=== PATIENT | female | born 1975 | race Caucasian/White ===

== ENCOUNTER 2021-01-09 09:35 | Observation (INO) | payer OTHER ==
[2021-01-09] MEDS ORDERED: LACTATED RINGERS SOLUTION 1,000 ML/1,000 ML INFUS.BAG IV STA (09:47)
[2021-01-09] MEDS ORDERED: ACETAMINOPHEN 1000 MG/100 ML VIAL (NON FORMULARY) IVPB ONE ×2 (09:47→15:36)
[2021-01-09] MEDS ORDERED: ACETAMINOPHEN INJECTION 100 ML IVPB ONE ×2 (09:59→15:31)
[2021-01-09 10:17] LABS: BASO % 0.3 % (0-2.0); EOS % 0.3 % (0-4.5); HEMATOCRIT 26.8 % (32.4-45.2); HEMOGLOBIN 8.5 GM/dl (10.7-15.3); LYMPH % 12.2 % (8-40); MCH 20.5 pg (25.7-33.7); MCHC 31.7 g/dl (32.0-36.0); MEAN CELL VOLUME 64.7 fl (80-96); MEAN PLT VOLUME 8.4 fl (7.5-11.1); MONO % 3.8 % (3.8-10.2); NEUT % 83.4 % (42.8-82.8); PLATELET COUNT 298 K/MM3 (134-434); RBC 4.14 M/mm3 (3.60-5.2); RDW 17.5 % (11.6-15.6); WHITE BLOOD COUNT 7.2 K/mm3 (4.0-10.8)
[2021-01-09 10:18] LABS: ADD RBC MORPHOLOGY YES
[2021-01-09 10:24] LABS: ALBUMIN 3.6 g/dl (3.4-5.0); BILIRUBIN,TOTAL 0.6 mg/dl (0.2-1); CALCIUM 8.2 mg/dl (8.5-10); CREATININE 0.5 mg/dl (0.55-1.3); MAGNESIUM 1.7 mg/dL (1.8-2.4); TOT PROT 6.9 g/dl (6.4-8.2)
[2021-01-09 11:09] LABS: ANISOCYTOSIS 1+
[2021-01-09 11:10] LABS: PLATELET ESTIMATE ADEQUATE
[2021-01-09 11:39] LABS: HEMATOCRIT 26.4 % (32.4-45.2); HEMOGLOBIN 8.4 GM/dl (10.7-15.3); MCH 20.5 pg (25.7-33.7); MCHC 31.7 g/dl (32.0-36.0); MEAN CELL VOLUME 64.8 fl (80-96); MEAN PLT VOLUME 8.9 fl (7.5-11.1); PLATELET COUNT 232 K/MM3 (134-434); RBC 4.08 M/mm3 (3.60-5.2); RDW 17.7 % (11.6-15.6); WHITE BLOOD COUNT 7.6 K/mm3 (4.0-10.8)
[2021-01-09 11:52] LABS: BASO % 0.4 % (0-2.0); EOS % 0.1 % (0-4.5); LYMPH % 11.9 % (8-40); MONO % 3.4 % (3.8-10.2); NEUT % 84.2 % (42.8-82.8)
[2021-01-09 16:07] VITALS: BMI 35.3
[2021-01-09] MEDS ORDERED: MAGNESIUM OXIDE 400 MG TABLET (FP) PO ONE (20:15)
[2021-01-09] MEDS ORDERED: SODIUM CHLORIDE 1,000 ML IV SCH (20:15)
[2021-01-10] MEDS ORDERED: ACETAMINOPHEN 325 MG TABLET (FP) PO PRN (00:16)
[2021-01-10 01:04] LABS: IRON SERUM 14 ug/dL (50-175)
[2021-01-10 01:05] LABS: TOTAL IRON BINDING CAPACITY 429 ug/dL (250-450)
[2021-01-10 02:16] LABS: PH,URINE 6.5 (5.0-8.0); URINE APPEARANCE CLEAR; URINE BILIRUBIN NEGATIVE (NEGATIVE); URINE COLOR YELLOW; URINE GLUCOSE (UA) NEGATIVE (NEGATIVE); URINE KETONE 1+ (NEGATIVE); URINE LEUK ESTERASE NEGATIVE (NEGATIVE); URINE NITRITE NEGATIVE (NEGATIVE); URINE PROTEIN NEGATIVE (NEGATIVE); URINE UROBILINOGEN 0.2 mg/dL (0.2-1.0)
[2021-01-10 08:06] LABS: HEMATOCRIT 26.1 % (32.4-45.2); HEMOGLOBIN 8.1 GM/dl (10.7-15.3); MCH 20.1 pg (25.7-33.7); MCHC 31.1 g/dl (32.0-36.0); MEAN CELL VOLUME 64.7 fl (80-96); MEAN PLT VOLUME 8.9 fl (7.5-11.1); PLATELET COUNT 227 K/MM3 (134-434); RBC 4.04 M/mm3 (3.60-5.2); RDW 17.5 % (11.6-15.6)
[2021-01-10 08:10] LABS: CALCIUM 7.9 mg/dl (8.5-10); CREATININE 0.5 mg/dl (0.55-1.3)
[2021-01-10 09:12] VITALS: TEMP 98.7
[2021-01-10 09:45] VITALS: BP 104/48; PULSE 80
[2021-01-10] MEDS ORDERED: FERROUS SO4 325 MG TABLET (FP) PO SCH (10:00)
[2021-01-10 12:06] LABS: IRON SERUM 14 ug/dL (50-175); TOTAL IRON BINDING CAPACITY 404 ug/dL (250-450)
== END 2021-01-10 13:06 | disposition home or self-care (01) ==
LOC: FER 09:35 → FM/S 12:19 → INTOOBSV 12:19
PROVIDERS: ADMIT Internal Medicine; ATTEND Nurse Practitioner Acute Care
PROC: 3E0337Z Introduction of Electrolytic and Water Balance Substance into Peripheral Vein, Percutaneous Approach (ICD-10-PCS; principal; 2021-01-09)
PROC: 3E033NZ Introduction of Analgesics, Hypnotics, Sedatives into Peripheral Vein, Percutaneous Approach (ICD-10-PCS; 2021-01-09)
DX: R42 Dizziness and giddiness (principal); D64.9 Anemia, unspecified; R50.9 Fever, unspecified; E83.42 Hypomagnesemia; R20.2 Paresthesia of skin; E66.9 Obesity, unspecified; Z29.9 Encounter for prophylactic measures, unspecified; Z68.35 Body mass index [BMI] 35.0-35.9, adult
CPT/HCPCS: 36415; 71045-TC-FY; 80048; 80053; 81003; 82272; 83540; 83550; 83735; 84466; 85025; 85027; 86850; 86900; 86901; 86922; 87040; 93005; 99285-25; C9803; G0378; J0131; U0003; U0005